=== PATIENT | male | born 1990 | race Caucasian/White ===

== ENCOUNTER 2016-07-13 02:03 | Emergency (ER) | payer BC ==
[~2016-07-13] VITALS: Ht 177.8 cm; Wt 87.4 kg
[2016-07-13 02:12] VITALS: PULSE 107; TEMP 37; O2SAT 97; Ht 177.8 cm; Wt 87.4 kg
[2016-07-13] MEDS ORDERED: ACETAMINOPHEN 500 MG TAB PO STA (02:30)
[2016-07-13] MEDS ORDERED: IBUPROFEN 600 MG TAB PO STA (02:30)
[2016-07-13 03:56] VITALS: BP 135/88
[2016-07-13] MEDS ORDERED: AMOX875T PO (04:23)
[2016-07-13] MEDS ORDERED: HYDR-5688 PO (04:23)
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
== END 2016-07-13 04:34 | disposition home or self-care (01) ==
LOC: C.EDB 02:05 → C.EDA 04:34
DX: S02.30XA Fracture of orbital floor, unspecified side, initial encounter for closed fracture (principal); S02.401A Maxillary fracture, unspecified side, initial encounter for closed fracture; W22.8XXA Striking against or struck by other objects, initial encounter